=== PATIENT | male | born 1960 | race Caucasian/White ===

== ENCOUNTER 2016-08-13 23:42 | Inpatient (IN) | payer OTHER ==
[~2016-08-13] VITALS: Ht 177.8 cm; Wt 72.5 kg
[~2016-08-13 23:42] MED LIST: ALPRAZOLAM0.5 MG PO; ATARAX,VISTARIL25 MG PO; BACTRIM,SEPT1 TABLET PO; BUSPAR10 MG PO; CELEXA20 MG PO; CENTRUM MEN'S1 EACH PO; CITALOPRAM HBR20 MG PO; CLINDAMYCIN HC300 MG PO; CLONAZEPAM0.5 MG PO; Coumadin Protocol PO; Coumadin,Jantoven PO; DEPAKOTE ER500 MG PO; DIVALPROEX SOD500 M1 PO; ESCITALOPRAM OX10 MG PO; ESCITALOPRAM OX20 MG PO; FEOSOL325 MG PO; FLEXERIL10 MG PO; FLEXERIL5 MG PO; Feosol PO; IRON256 MG PO; LEXAPRO10 MG PO; LIDODERM 5% P1 PATCH TD; METHADONE10 MG PO; METHadone HCl PO; MOOD STABILIZER; MS CONTIN,ORAMO15 M1 PO; NAPROSYN-EC500 MG PO; NOHOMEMEDS; OMEGA DHA92 MG PO; OXAYDO5 MG PO; OXYCODONE HCL10 MG PO; OXYCODONE HCL30 MG PO; OXYCODONE HCL5 MG PO; OXYCODONE-APAP1 EACH PO; OXYCODONE30 MG; OXYCODONE5 MG PO; PERCOCET 10/1 TABLET PO; PERCOCET 5/31 TABLET PO; PREDNISONE20 MG PO; Percocet 5/325,Endoc PO; QUETIAPINE FUMA50 MG PO; SEROQUEL50 MG PO; SERTRALINE HCL100 MG PO; SERTRALINE HCL50 MG PO; ULTRAM50 MG PO; VALIUM5 MG PO; WARFARIN SODIUM5 MG PO; XANAX0.5 MG PO; XANAX1 MG PO; ZITHROMAX Z-PA250 MG PO; ZOFRAN4 MG PO; ZOLOFT100 MG PO; celeBREX PO
[2016-08-14 00:19] LABS: HEMATOCRIT 42.3 % (38.0-50.0); MCH 31.7 PG (29.0-34.0); MCHC 33.8 G/DL (30.0-36.0); RBC DIS.WIDTH-CV 12.4 % (11.8-14.6); RBC DIS.WIDTH-SD 42.6 % (39-53); RED BLOOD COUNT 4.51 M/uL (4.00-5.50); WHITE BLOOD COUNT 11.2 K/uL (4.1-10.2)
[2016-08-14 00:33] LABS: CHLORIDE 101 mEq/L (99-109); POTASSIUM 4.1 mEq/L (3.7-5.4); SODIUM 137 mEq/L (136-147)
[2016-08-14 00:35] LABS: GLUCOSE 115 mg/dL (70-99)
[2016-08-14 00:36] LABS: ANION GAP 10 MEQ/L (2-14)
[2016-08-14 00:39] LABS: GFR ESTIMATE (CALCULATED) > 59 mL/min/
[2016-08-14 00:40] LABS: UREA NITROGEN (BUN) 13 mg/dL (9-23)
[2016-08-14 00:43] LABS: TROP-I INTERPRETATION NEGATIVE; TROPONIN-I < 0.01 ng/mL (0.0-0.30)
[2016-08-14 00:46] LABS: TOTAL BILIRUBIN 0.8 mg/dL (0.0-1.0)
[2016-08-14 00:47] LABS: ALKALINE PHOSPHATASE 506 IU/L (3-129)
[2016-08-14 00:49] LABS: DIRECT BILIRUBIN 0.4 mg/dL (0.0-0.3)
[2016-08-14 00:50] LABS: LIPASE 40 U/L (1.0-51.0)
[2016-08-14 01:02] LABS: MCV 93.8 FL (86-99)
[2016-08-14 01:12] LABS: MEAN PLAT.VOLUME 12.8 uM^3 (9.0-12.4); PLAT.SUFFICIENCY ADEQUATE; PLATELET COUNT 272 K/uL (156-360)
[2016-08-14] MEDS ORDERED: KADIAN30 MG PO (03:30)
[2016-08-14] MEDS ORDERED: DILAUDID4 MG PO (03:30)
[2016-08-14] MEDS ORDERED: OXAYDO5 MG PO (03:31)
[2016-08-14 04:16] VITALS: BP 109/73
[2016-08-14 08:42] VITALS: BP 108/67
[2016-08-14] MEDS ORDERED: NEXIUM40 MG PO (11:21)
[2016-08-14] MEDS ORDERED: ARYMO ER30 MG PO (11:23)
[2016-08-14 15:48] VITALS: BP 113/71
[2016-08-14 19:49] VITALS: BP 111/73
[2016-08-14 23:49] VITALS: BP 128/70
[2016-08-15 04:21] VITALS: BP 116/75
[2016-08-15 07:02] VITALS: BP 124/77
[2016-08-15 13:30] VITALS: BP 114/70
[2016-08-15] MEDS ORDERED: OXYCODONE HCL10 MG PO (14:27)
[2016-08-15] MEDS ORDERED: OXYCODONE HCL5 MG PO (16:22)
[2016-08-18] MEDS ORDERED: DILAUDID4 MG PO (10:28)
[2016-08-18] MEDS ORDERED: MS CONTIN,ORAMO30 MG PO (10:29)
[2016-08-18] MEDS ORDERED: COMPAZINE10 MG PO (10:29)
== END 2016-08-15 17:04 | disposition home or self-care (01) | DRG 948 ==
LOC: EME 23:42 → EDOF 08-14 02:42 → 5WEST 08-14 04:03
DX: G89.3 Neoplasm related pain (acute) (chronic) (principal); C15.5 Malignant neoplasm of lower third of esophagus; C78.7 Secondary malignant neoplasm of liver and intrahepatic bile duct; F32.9 Major depressive disorder, single episode, unspecified; F43.20 Adjustment disorder, unspecified; Z96.641 Presence of right artificial hip joint; G89.29 Other chronic pain; M54.5 Low back pain; N40.0 Benign prostatic hyperplasia without lower urinary tract symptoms; K21.9 Gastro-esophageal reflux disease without esophagitis; Z87.891 Personal history of nicotine dependence; Z93.1 Gastrostomy status; Z79.891 Long term (current) use of opiate analgesic; Z91.5 Personal history of self-harm
CPT/HCPCS: 71010; 71275; 74177; 80048; 80076; 83605; 83690; 84484; 85027; 87040; 93005; 94640; 99281; 99285; J1170; J1650; J2270; J2405; J7030; J7050; S0028

== ENCOUNTER 2016-08-30 20:24 | Inpatient (IN) | payer OTHER ==
[~2016-08-30] VITALS: Ht 177.8 cm; Wt 71.8 kg
[~2016-08-30 20:24] MED LIST changes: +ARYMO ER30 MG PO; +COMPAZINE10 MG PO; +DILAUDID4 MG PO; +KADIAN30 MG PO; +MS CONTIN,ORAMO30 MG PO; +NEXIUM40 MG PO
[2016-08-30 21:35] LABS: BASOPHIL COUNT 0.1 K/uL (0-0.1); EOSINOPHIL (%) 4.1 % (0-5); EOSINOPHIL COUNT 0.5 K/uL (0-0.3); HEMATOCRIT 37.8 % (38.0-50.0); IMMATURE GRANULOCYTE (%) 0.4 % (0.0-0.7); IMMATURE GRANULOCYTE COUNT 0.1 K/uL; INSTRUMENT ABS NEUTROPHIL CT 7.9 K/uL; LYMPHOCYTE COUNT 2.3 K/uL (1.0-2.8); MCH 31.2 PG (29.0-34.0); MCHC 33.6 G/DL (30.0-36.0); MCV 92.9 FL (86-99); MEAN PLAT.VOLUME 11.7 uM^3 (9.0-12.4); MONOCYTE (%) 13.6 % (3-12); MONOCYTE COUNT 1.7 K/uL (0-0.8); NEUTROPHIL COUNT 7.9 K/uL (1.8-6.4); PLATELET COUNT 209 K/uL (156-360); RBC DIS.WIDTH-CV 12.4 % (11.8-14.6); RBC DIS.WIDTH-SD 42.8 % (39-53); RED BLOOD COUNT 4.07 M/uL (4.00-5.50); WHITE BLOOD COUNT 12.5 K/uL (4.1-10.2)
[2016-08-30 21:43] LABS: CHLORIDE 106 mEq/L (99-109); SODIUM 139 mEq/L (136-147)
[2016-08-30 21:45] LABS: GLUCOSE 134 mg/dL (70-99)
[2016-08-30 21:47] LABS: ANION GAP 9 MEQ/L (2-14); TOTAL BILIRUBIN 0.4 mg/dL (0.0-1.0)
[2016-08-30 21:49] LABS: ALKALINE PHOSPHATASE 236 IU/L (3-129); GFR ESTIMATE (CALCULATED) > 59 mL/min/
[2016-08-30 21:50] LABS: UREA NITROGEN (BUN) 8 mg/dL (9-23)
[2016-08-30] MEDS ORDERED: GABAPENTIN100 MG PO (23:43)
[2016-08-30] MEDS ORDERED: MI-ACID80 MG PO (23:46)
[2016-08-31 02:42] VITALS: BP 104/63
[2016-08-31 04:40] LABS: METH RESISTANT S AUREUS PCR NEGATIVE (NEGATIVE)
[2016-08-31 04:41] LABS: PROBE CHECK PASS; SPECIMEN PROCESSING CONTROL PASS
[2016-08-31 06:35] LABS: BASOPHIL COUNT 0.1 K/uL (0-0.1); EOSINOPHIL (%) 3.9 % (0-5); EOSINOPHIL COUNT 0.4 K/uL (0-0.3); HEMATOCRIT 36.6 % (38.0-50.0); IMMATURE GRANULOCYTE (%) 0.5 % (0.0-0.7); IMMATURE GRANULOCYTE COUNT 0.1 K/uL; INSTRUMENT ABS NEUTROPHIL CT 6.8 K/uL; LYMPHOCYTE COUNT 2.4 K/uL (1.0-2.8); MCH 30.9 PG (29.0-34.0); MCHC 32.5 G/DL (30.0-36.0); MCV 95.1 FL (86-99); MONOCYTE (%) 13.6 % (3-12); MONOCYTE COUNT 1.5 K/uL (0-0.8); NEUTROPHIL (%) 60.1 % (45-76); NEUTROPHIL COUNT 6.8 K/uL (1.8-6.4); PLATELET COUNT 196 K/uL (156-360); RBC DIS.WIDTH-CV 12.6 % (11.8-14.6); RBC DIS.WIDTH-SD 44.2 % (39-53); RED BLOOD COUNT 3.85 M/uL (4.00-5.50); WHITE BLOOD COUNT 11.4 K/uL (4.1-10.2)
[2016-08-31 06:54] LABS: ANION GAP 6 MEQ/L (2-14); CHLORIDE 106 MEQ/L (99-109); GFR ESTIMATE (CALCULATED) > 59 mL/min/; POTASSIUM 4.8 MEQ/L (3.7-5.4); SAMPLE HEMOLYSIS CHECK 0; SAMPLE ICTERIC CHECK 0; SAMPLE LIPEMIA CHECK 0; SODIUM 141 MEQ/L (136-147); UREA NITROGEN (BUN) 7 mg/dL (9-23)
[2016-08-31 07:03] LABS: GLUCOSE 87 mg/dL (70-99)
[2016-08-31 07:07] VITALS: BP 104/59
[2016-08-31] MEDS ORDERED: OXYCODONE HCL10 MG PO (12:31)
[2016-08-31 15:50] VITALS: BP 101/59
[2016-08-31] MEDS ORDERED: XANAX1 MG PO (15:57)
[2016-08-31 23:37] VITALS: BP 101/67
[2016-09-01 06:21] LABS: BASOPHIL COUNT 0.1 K/uL (0-0.1); EOSINOPHIL (%) 4.1 % (0-5); EOSINOPHIL COUNT 0.4 K/uL (0-0.3); HEMATOCRIT 36.4 % (38.0-50.0); IMMATURE GRANULOCYTE (%) 0.3 % (0.0-0.7); INSTRUMENT ABS NEUTROPHIL CT 6.7 K/uL; MCH 30.6 PG (29.0-34.0); MCHC 32.1 G/DL (30.0-36.0); MCV 95.3 FL (86-99); MEAN PLAT.VOLUME 12.7 uM^3 (9.0-12.4); MONOCYTE (%) 12.7 % (3-12); MONOCYTE COUNT 1.4 K/uL (0-0.8); NEUTROPHIL (%) 63.5 % (45-76); NEUTROPHIL COUNT 6.7 K/uL (1.8-6.4); PLATELET COUNT 199 K/uL (156-360); RBC DIS.WIDTH-CV 12.6 % (11.8-14.6); RBC DIS.WIDTH-SD 43.4 % (39-53); RED BLOOD COUNT 3.82 M/uL (4.00-5.50); WHITE BLOOD COUNT 10.6 K/uL (4.1-10.2)
[2016-09-01 07:04] VITALS: BP 92/42
[2016-09-01 15:39] VITALS: BP 109/65
[2016-09-01 20:35] VITALS: BP 111/69
[2016-09-01 23:04] VITALS: BP 110/68
[2016-09-02 06:09] VITALS: BP 99/63
[2016-09-02 07:23] VITALS: BP 115/68
[2016-09-02 08:55] LABS: MCH 30.7 PG (29.0-34.0); MCHC 32.2 G/DL (30.0-36.0); MCV 95.2 FL (86-99); MEAN PLAT.VOLUME 12.2 uM^3 (9.0-12.4); PLATELET COUNT 207 K/uL (156-360); RBC DIS.WIDTH-CV 12.7 % (11.8-14.6); RBC DIS.WIDTH-SD 44.2 % (39-53); RED BLOOD COUNT 3.78 M/uL (4.00-5.50); WHITE BLOOD COUNT 7.5 K/uL (4.1-10.2)
[2016-09-02 09:20] LABS: ANION GAP 7 MEQ/L (2-14); CHLORIDE 107 MEQ/L (99-109); GFR ESTIMATE (CALCULATED) > 59 mL/min/; GLUCOSE 103 mg/dL (70-99); SAMPLE HEMOLYSIS CHECK 0; SAMPLE ICTERIC CHECK 0; SAMPLE LIPEMIA CHECK 0; SODIUM 145 MEQ/L (136-147); UREA NITROGEN (BUN) 6 mg/dL (9-23)
[2016-09-02] MEDS ORDERED: CIPRO500 MG PO (12:36)
[2016-09-02] MEDS ORDERED: DOXYCYCLINE HY100 MG PO (12:36)
== END 2016-09-02 15:15 | disposition home or self-care (01) | DRG 394 ==
LOC: EME 20:24 → 5EAST 08-31 00:20 → EDOF 08-31 00:20 → 5EAST 08-31 02:30
PROVIDERS: Emergency Medicine; Hospitalist; Internal Medicine
DX: K94.22 Gastrostomy infection (principal); C15.9 Malignant neoplasm of esophagus, unspecified; C78.7 Secondary malignant neoplasm of liver and intrahepatic bile duct; L03.311 Cellulitis of abdominal wall; L02.211 Cutaneous abscess of abdominal wall; C77.8 Secondary and unspecified malignant neoplasm of lymph nodes of multiple regions; F11.20 Opioid dependence, uncomplicated; C79.51 Secondary malignant neoplasm of bone; F33.9 Major depressive disorder, recurrent, unspecified; G89.3 Neoplasm related pain (acute) (chronic); K21.9 Gastro-esophageal reflux disease without esophagitis; F17.210 Nicotine dependence, cigarettes, uncomplicated; G89.4 Chronic pain syndrome; M54.12 Radiculopathy, cervical region; M54.16 Radiculopathy, lumbar region; K59.00 Constipation, unspecified; Z88.6 Allergy status to analgesic agent; Z96.651 Presence of right artificial knee joint; Z98.1 Arthrodesis status; Z86.14 Personal history of Methicillin resistant Staphylococcus aureus infection; Z80.8 Family history of malignant neoplasm of other organs or systems; Z81.8 Family history of other mental and behavioral disorders; Z09 Encounter for follow-up examination after completed treatment for conditions other than malignant neoplasm
CPT/HCPCS: 74176; 80048; 80053; 82948; 83605; 85025; 85027; 87040; 87070; 87075; 87205; 87641; 99281; 99285; J1170; J1644; J2270; J2543; J7030; J7050; S0028

== ENCOUNTER 2016-09-04 22:56 | Observation (INO) | payer OTHER ==
[~2016-09-04] VITALS: Ht 177.8 cm; Wt 73.2 kg
[~2016-09-04 22:56] MED LIST changes: +CIPRO500 MG PO; +DOXYCYCLINE HY100 MG PO; +GABAPENTIN100 MG PO; +MI-ACID80 MG PO
[2016-09-05 00:15] LABS: EOSINOPHIL (%) 4.3 % (0-5); EOSINOPHIL COUNT 0.4 K/uL (0-0.3); HEMATOCRIT 35.4 % (38.0-50.0); IMMATURE GRANULOCYTE (%) 0.3 % (0.0-0.7); INSTRUMENT ABS NEUTROPHIL CT 5.8 K/uL; MCH 30.9 PG (29.0-34.0); MCHC 33.1 G/DL (30.0-36.0); MCV 93.4 FL (86-99); MONOCYTE (%) 12.9 % (3-12); MONOCYTE COUNT 1.2 K/uL (0-0.8); NEUTROPHIL (%) 61.2 % (45-76); NEUTROPHIL COUNT 5.8 K/uL (1.8-6.4); PLATELET COUNT 204 K/uL (156-360); RBC DIS.WIDTH-CV 12.8 % (11.8-14.6); RBC DIS.WIDTH-SD 43.5 % (39-53); RED BLOOD COUNT 3.79 M/uL (4.00-5.50); WHITE BLOOD COUNT 9.5 K/uL (4.1-10.2)
[2016-09-05 00:25] LABS: CHLORIDE 107 mEq/L (99-109); POTASSIUM 3.9 mEq/L (3.7-5.4); SODIUM 139 mEq/L (136-147)
[2016-09-05 00:27] LABS: GLUCOSE 102 mg/dL (70-99)
[2016-09-05 00:29] LABS: ANION GAP 7 MEQ/L (2-14)
[2016-09-05 00:31] LABS: GFR ESTIMATE (CALCULATED) > 59 mL/min/
[2016-09-05 00:32] LABS: UREA NITROGEN (BUN) 7 mg/dL (9-23)
[2016-09-05 00:36] LABS: TROP-I INTERPRETATION NEGATIVE; TROPONIN-I < 0.01 ng/mL (0.0-0.30)
[2016-09-05 01:14] LABS: ADD MIUA? NO; BILIRUBIN NEGATIVE; BLOOD NEGATIVE; COLOR YELLOW ((YELLOW)); GLUCOSE (STRIP) NEGATIVE; KETONES NEGATIVE; LEUKOCYTES NEGATIVE; NITRITE NEGATIVE; PROTEIN (STRIP) NEGATIVE; SPECIFIC GRAVITY 1.005 (1.000-1.030); UCUL ADDED? NO; UROBILINOGEN 0.2 MG/DL (0.2-1.0)
[2016-09-05 01:21] LABS: THC CANNABINOIDS NEGATIVE (50 ng/mL)
[2016-09-05 01:22] LABS: AMPHETAMINE NEGATIVE (500 ng/mL); BARBITURATES NEGATIVE (200 ng/mL); BENZODIAZEPINES PRESUMPTIVE POSITIVE (150 ng/mL); COCAINE NEGATIVE (150 ng/mL); INTERNAL CONTROLS VALID? YES; METHADONE NEGATIVE (200 ng/mL); METHAMPHETAMINE NEGATIVE (500 ng/mL); OPIATES (MORPHINE) PRESUMPTIVE POSITIVE (100 ng/mL); OXYCODONE PRESUMPTIVE POSITIVE (100 ng/mL); PHENCYCLIDINE NEGATIVE (25 ng/mL); PROPOXYPHENE NEGATIVE (300 ng/mL); TRICYCLIC ANTIDEPRESSANTS NEGATIVE (300 ng/mL)
[2016-09-05 01:23] LABS: ADD MEDTOX COMMENT Y
[2016-09-05 02:29] LABS: BENZODIAZEPINES, URINE SCREEN POSITIVE (200 ng/mL)
[2016-09-05 02:48] LABS: BICARBONATE 27.1 mEq/L (22-26); CARBOXY HGB 2.4 % (0-5); COMMENTS - BLOOD GASES A+C+; DEVICE ROOM AIR; FI02 0.21 %; METHEMOGLOBIN 1.1 % (0-1.5); PCO2 39 mm Hg (35-45); PO2 68 mm Hg (80-100); SITE RR; pH 7.45 (7.35-7.45)
[2016-09-05 02:49] LABS: TOTAL RESP RATE 16 resp/min
[2016-09-05 03:32] VITALS: BP 112/65
[2016-09-05 08:05] VITALS: BP 110/68
== END 2016-09-05 12:45 | disposition home health service (06) ==
LOC: EME 22:56 → EDOF 09-05 02:20 → 5WEST 09-05 03:15
PROVIDERS: Emergency Medicine; Physician Assistant Medical
DX: R41.82 Altered mental status, unspecified (principal); K59.00 Constipation, unspecified; T40.605A Adverse effect of unspecified narcotics, initial encounter; F11.20 Opioid dependence, uncomplicated; K94.22 Gastrostomy infection; C78.7 Secondary malignant neoplasm of liver and intrahepatic bile duct; C78.00 Secondary malignant neoplasm of unspecified lung; C78.89 Secondary malignant neoplasm of other digestive organs; K21.9 Gastro-esophageal reflux disease without esophagitis; G89.29 Other chronic pain; Z85.01 Personal history of malignant neoplasm of esophagus; M54.16 Radiculopathy, lumbar region; M54.12 Radiculopathy, cervical region; Z87.891 Personal history of nicotine dependence; Z86.14 Personal history of Methicillin resistant Staphylococcus aureus infection
CPT/HCPCS: 36600; 70450; 71020; 80048; 81003; 82140; 82803; 83605; 84484; 84999; 85025; 85027; 93005; 99281; 99284; G0378; J1650; J7030

== ENCOUNTER 2016-09-26 20:55 | Inpatient (IN) | payer OTHER ==
[~2016-09-26] VITALS: Ht 177.8 cm; Wt 69.6 kg
[2016-09-26 22:29] LABS: HEMATOCRIT 34.9 % (38.0-50.0); MCH 30.2 PG (29.0-34.0); MCHC 33.5 G/DL (30.0-36.0); MCV 89.9 FL (86-99); RBC DIS.WIDTH-CV 12.8 % (11.8-14.6); RBC DIS.WIDTH-SD 41.6 % (39-53); RED BLOOD COUNT 3.88 M/uL (4.00-5.50); WHITE BLOOD COUNT 6.5 K/uL (4.1-10.2)
[2016-09-26 22:33] LABS: CHLORIDE 102 mEq/L (99-109); SODIUM 133 mEq/L (136-147)
[2016-09-26 22:35] LABS: GLUCOSE 129 mg/dL (70-99)
[2016-09-26 22:36] LABS: ANION GAP 6 MEQ/L (2-14)
[2016-09-26 22:39] LABS: GFR ESTIMATE (CALCULATED) > 59 mL/min/
[2016-09-26 22:40] LABS: INTER. NORMALIZED RATIO 1.1; PROTHROMBIN TIME 11.7 (9.2-11.2); PTT 29.8 (25-32); UREA NITROGEN (BUN) 11 mg/dL (9-23)
[2016-09-26 22:42] LABS: TROP-I INTERPRETATION NEGATIVE; TROPONIN-I < 0.01 ng/mL (0.0-0.30)
[2016-09-26 22:48] LABS: D-DIMER ELISA > 4.00 mg/L FEU (< 0.57)
[2016-09-26 23:33] LABS: PLATELET CLUMPS PRESENT - PLATELET C; PLATELET COUNT UNABLE TO REPORT K/uL (156-360)
[2016-09-27 04:43] VITALS: BP 100/58
[2016-09-27] MEDS ORDERED: OXYCODONE HCL30 MG PO (04:48)
[2016-09-27] MEDS ORDERED: ZOFRAN ODT4 MG PO (04:51)
[2016-09-27 05:59] LABS: TROP-I INTERPRETATION NEGATIVE; TROPONIN-I < 0.01 ng/mL (0.0-0.30)
[2016-09-27 07:45] VITALS: BP 98/60
[2016-09-27 11:33] VITALS: BP 87/51
[2016-09-27 13:13] LABS: TROP-I INTERPRETATION NEGATIVE; TROPONIN-I < 0.01 ng/mL (0.0-0.30)
[2016-09-27] MEDS ORDERED: OXYCODONE HCL5 MG PO (13:53)
[2016-09-27 14:16] VITALS: BP 99/57
[2016-09-27 20:00] VITALS: BP 10/62
[2016-09-27 23:50] LABS: POINT-OF-CARE METER ID UU13113700
[2016-09-28] VITALS (7 sets, daily range): BP systolic 103–115; BP diastolic 58–74
[2016-09-28 00:37] LABS: ADD MIUA? NO; BILIRUBIN NEGATIVE; BLOOD NEGATIVE; COLOR YELLOW ((YELLOW)); GLUCOSE (STRIP) NEGATIVE; KETONES NEGATIVE; LEUKOCYTES NEGATIVE; NITRITE NEGATIVE; PROTEIN (STRIP) NEGATIVE; SPECIFIC GRAVITY 1.009 (1.000-1.030); UCUL ADDED? NO
[2016-09-28 05:20] LABS: POINT-OF-CARE METER ID UU14162513
[2016-09-28 07:20] LABS: HEMATOCRIT 31.1 % (38.0-50.0); MCH 29.5 PG (29.0-34.0); MCHC 32.5 G/DL (30.0-36.0); MCV 90.9 FL (86-99); MEAN PLAT.VOLUME 12.2 uM^3 (9.0-12.4); RBC DIS.WIDTH-CV 13.1 % (11.8-14.6); RBC DIS.WIDTH-SD 42.9 % (39-53); RED BLOOD COUNT 3.42 M/uL (4.00-5.50); WHITE BLOOD COUNT 5.8 K/uL (4.1-10.2)
[2016-09-28 07:39] LABS: PLATELET COUNT 124 K/uL (156-360)
[2016-09-28 07:51] LABS: ANION GAP 9 MEQ/L (2-14); CHLORIDE 104 MEQ/L (99-109); GFR ESTIMATE (CALCULATED) > 59 mL/min/; GLUCOSE 98 mg/dL (70-99); POTASSIUM 3.8 MEQ/L (3.7-5.4); SAMPLE HEMOLYSIS CHECK 0; SAMPLE ICTERIC CHECK 0; SAMPLE LIPEMIA CHECK 0; SODIUM 138 MEQ/L (136-147); UREA NITROGEN (BUN) 5 mg/dL (9-23)
[2016-09-28 12:34] LABS: POINT-OF-CARE METER ID UU13113700
[2016-09-29 03:53] VITALS: BP 107/68
[2016-09-29 06:56] VITALS: BP 101/64
[2016-09-29 11:49] VITALS: BP 103/70
[2016-09-29 11:49] LABS: POINT-OF-CARE METER ID UU13113725
[2016-09-29 15:02] VITALS: BP 101/66
[2016-09-30 00:21] LABS: POINT-OF-CARE METER ID UU13113725
[2016-09-30 05:21] LABS: POINT-OF-CARE METER ID UU13113725
[2016-09-30 06:51] LABS: EOSINOPHIL (%) 3.9 % (0-5); EOSINOPHIL COUNT 0.4 K/uL (0-0.3); HEMATOCRIT 29.5 % (38.0-50.0); IMMATURE GRANULOCYTE (%) 0.6 % (0.0-0.7); IMMATURE GRANULOCYTE COUNT 0.1 K/uL; INSTRUMENT ABS NEUTROPHIL CT 5.9 K/uL; LYMPHOCYTE COUNT 1.6 K/uL (1.0-2.8); MCH 31.4 PG (29.0-34.0); MCHC 33.9 G/DL (30.0-36.0); MCV 92.8 FL (86-99); MEAN PLAT.VOLUME 11.9 uM^3 (9.0-12.4); MONOCYTE (%) 16.3 % (3-12); MONOCYTE COUNT 1.5 K/uL (0-0.8); NEUTROPHIL (%) 62.3 % (45-76); NEUTROPHIL COUNT 5.9 K/uL (1.8-6.4); PLATELET COUNT 145 K/uL (156-360); RBC DIS.WIDTH-CV 13.4 % (11.8-14.6); RBC DIS.WIDTH-SD 44.9 % (39-53); RED BLOOD COUNT 3.18 M/uL (4.00-5.50); WHITE BLOOD COUNT 9.4 K/uL (4.1-10.2)
[2016-09-30 07:16] LABS: ANION GAP 6 MEQ/L (2-14); CHLORIDE 101 MEQ/L (99-109); GFR ESTIMATE (CALCULATED) > 59 mL/min/; GLUCOSE 107 mg/dL (70-99); POTASSIUM 3.8 MEQ/L (3.7-5.4); SAMPLE HEMOLYSIS CHECK 0; SAMPLE ICTERIC CHECK 0; SAMPLE LIPEMIA CHECK 0; SODIUM 136 MEQ/L (136-147); UREA NITROGEN (BUN) 6 mg/dL (9-23)
[2016-09-30 08:04] VITALS: BP 99/64
[2016-09-30] MEDS ORDERED: DOCU LIQUI50 MG/5 ML GT (13:39)
[2016-09-30] MEDS ORDERED: ZOFRAN ODT4 MG PO (13:40)
[2016-09-30] MEDS ORDERED: OXYCODONE HCL30 MG PO (13:42)
[2016-09-30] MEDS ORDERED: MORPHINE SULFAT60 MG PO (13:42)
[2016-09-30] MEDS ORDERED: PREVACID SOLUTA30 MG GT (13:42)
[2016-09-30 15:55] VITALS: BP 90/68
== END 2016-09-30 16:34 | disposition home health service (06) | DRG 375 ==
LOC: EME 20:55 → 5WEST 09-27 03:14 → EDOF 09-27 03:14 → 5WEST 09-27 04:28 → 5EAST 09-28 10:18
PROVIDERS: Hospitalist; Internal Medicine; Student in an Organized Health Care Education/Training Program
DX: C15.5 Malignant neoplasm of lower third of esophagus (principal); K22.2 Esophageal obstruction; G89.3 Neoplasm related pain (acute) (chronic); C78.00 Secondary malignant neoplasm of unspecified lung; C78.7 Secondary malignant neoplasm of liver and intrahepatic bile duct; C79.51 Secondary malignant neoplasm of bone; C77.1 Secondary and unspecified malignant neoplasm of intrathoracic lymph nodes; F41.9 Anxiety disorder, unspecified; G89.4 Chronic pain syndrome; R13.19 Other dysphagia; F32.9 Major depressive disorder, single episode, unspecified; J44.9 Chronic obstructive pulmonary disease, unspecified; K21.9 Gastro-esophageal reflux disease without esophagitis; D64.9 Anemia, unspecified; Z96.641 Presence of right artificial hip joint; Z98.1 Arthrodesis status; Z87.891 Personal history of nicotine dependence; Z93.1 Gastrostomy status; Z79.891 Long term (current) use of opiate analgesic
CPT/HCPCS: 71020; 71275; 80048; 81003; 82948; 83880; 84484; 85025; 85027; 85379; 85610; 85730; 93005; 99281; 99285; G0378; J1650; J2270; J2405; J7030; J7042; S0028

== ENCOUNTER 2016-10-09 16:03 | Inpatient (IN) | payer OTHER ==
[~2016-10-09] VITALS: Ht 177.8 cm; Wt 75.5 kg
[~2016-10-09 16:03] MED LIST changes: +DOCU LIQUI50 MG/5 ML GT; +LASIX20 MG PO; +MORPHINE SULFAT60 MG PO; +PREVACID SOLUTA30 MG GT; +PRILOSEC10 M1 PO; +ZOFRAN ODT4 MG PO
[2016-10-09] MEDS ORDERED: OXYCODONE HCL30 MG PO (17:12)
[2016-10-09] MEDS ORDERED: NEXIUM20 M1 GT (17:13)
[2016-10-09 18:26] LABS: BASOPHIL COUNT 0.1 K/uL (0-0.1); EOSINOPHIL COUNT 0.1 K/uL (0-0.3); HEMATOCRIT 35.5 % (38.0-50.0); IMMATURE GRANULOCYTE (%) 0.5 % (0.0-0.7); IMMATURE GRANULOCYTE COUNT 0.1 K/uL; INSTRUMENT ABS NEUTROPHIL CT 7.5 K/uL; LYMPHOCYTE COUNT 1.9 K/uL (1.0-2.8); MCH 30.1 PG (29.0-34.0); MCHC 33.2 G/DL (30.0-36.0); MCV 90.6 FL (86-99); MEAN PLAT.VOLUME 12.4 uM^3 (9.0-12.4); MONOCYTE COUNT 2.1 K/uL (0-0.8); NEUTROPHIL (%) 64.1 % (45-76); NEUTROPHIL COUNT 7.5 K/uL (1.8-6.4); PLATELET COUNT 148 K/uL (156-360); RBC DIS.WIDTH-CV 17.1 % (11.8-14.6); RBC DIS.WIDTH-SD 52.6 % (39-53); RED BLOOD COUNT 3.92 M/uL (4.00-5.50); WHITE BLOOD COUNT 11.7 K/uL (4.1-10.2)
[2016-10-09 18:36] LABS: CHLORIDE 102 mEq/L (99-109); POTASSIUM 4.1 mEq/L (3.7-5.4); SODIUM 137 mEq/L (136-147)
[2016-10-09 18:38] LABS: GLUCOSE 89 mg/dL (70-99)
[2016-10-09 18:39] LABS: ANION GAP 10 MEQ/L (2-14)
[2016-10-09 18:40] LABS: TOTAL BILIRUBIN 3.4 mg/dL (0.0-1.0)
[2016-10-09 18:41] LABS: ALKALINE PHOSPHATASE 514 IU/L (3-129)
[2016-10-09 18:42] LABS: GFR ESTIMATE (CALCULATED) > 59 mL/min/; INTER. NORMALIZED RATIO 1.3; PROTHROMBIN TIME 13.4 (9.2-11.2); PTT 29.6 (25-32)
[2016-10-09 18:43] LABS: UREA NITROGEN (BUN) 7 mg/dL (9-23)
[2016-10-09 19:32] LABS: ADD MIUA? YES; BILIRUBIN MODERATE; BLOOD NEGATIVE; COLOR AMBER ((YELLOW)); GLUCOSE (STRIP) NEGATIVE; KETONES NEGATIVE; LEUKOCYTES NEGATIVE; NITRITE NEGATIVE; PROTEIN (STRIP) NEGATIVE; SPECIFIC GRAVITY 1.036 (1.000-1.030)
[2016-10-09 19:34] LABS: BACTERIA RARE /HPF; EPITHELIAL CELLS RARE /HPF; MUCUS 3+ /LPF; RED BLOOD CELLS 0-5 /HPF (0-5); UCUL ADDED? NO
[2016-10-09 19:45] LABS: ICTOTEST NEGATIVE
[2016-10-09 23:44] VITALS: BP 127/69
[2016-10-10 06:47] LABS: HEMATOCRIT 34.9 % (38.0-50.0); MCH 30.4 PG (29.0-34.0); MCHC 33.2 G/DL (30.0-36.0); MCV 91.6 FL (86-99); MEAN PLAT.VOLUME 12.9 uM^3 (9.0-12.4); PLATELET COUNT 137 K/uL (156-360); RBC DIS.WIDTH-CV 17.5 % (11.8-14.6); RBC DIS.WIDTH-SD 55.5 % (39-53); RED BLOOD COUNT 3.81 M/uL (4.00-5.50); WHITE BLOOD COUNT 11.1 K/uL (4.1-10.2)
[2016-10-10 07:21] LABS: ANION GAP 8 MEQ/L (2-14); CHLORIDE 103 MEQ/L (99-109); GFR ESTIMATE (CALCULATED) > 59 mL/min/; GLUCOSE 90 mg/dL (70-99); POTASSIUM 3.9 MEQ/L (3.7-5.4); SAMPLE HEMOLYSIS CHECK 0; SAMPLE ICTERIC CHECK 0; SAMPLE LIPEMIA CHECK 0; SODIUM 137 MEQ/L (136-147); UREA NITROGEN (BUN) 9 mg/dL (9-23)
[2016-10-10 07:44] LABS: DIRECT BILIRUBIN 2.2 mg/dL (0.0-0.3)
[2016-10-10 08:34] VITALS: BP 127/75
[2016-10-10 11:14] LABS: TYPE OF FLUID PARACENTESIS
[2016-10-10 12:23] LABS: BODY FLUID EOSINOPHILS 1 % (0-25); BODY FLUID RBC'S < 1000 /MM^3 (0-100); BODY FLUID WBC'S 384 /MM^3 (0-500); MONONUCLEAR WBC'S 96 %; POLYNUCLEAR WBC'S 3 % (0-25)
[2016-10-10 12:37] LABS: BODY FLUID LDH 111 IU/L; BODY FLUID PROTEIN < 3.0 G/DL
[2016-10-10 15:41] VITALS: BP 130/68
[2016-10-10 21:26] VITALS: BP 106/76
[2016-10-11 06:38] VITALS: BP 105/65
[2016-10-11 07:02] LABS: HEMATOCRIT 35.7 % (38.0-50.0); MCH 30.2 PG (29.0-34.0); MCHC 32.8 G/DL (30.0-36.0); MEAN PLAT.VOLUME 12.4 uM^3 (9.0-12.4); PLATELET COUNT 119 K/uL (156-360); RBC DIS.WIDTH-SD 57.1 % (39-53); RED BLOOD COUNT 3.88 M/uL (4.00-5.50); WHITE BLOOD COUNT 12.1 K/uL (4.1-10.2)
[2016-10-11 07:33] LABS: ALKALINE PHOSPHATASE 387 IU/L (3-129); ANION GAP 6 MEQ/L (2-14); CHLORIDE 104 MEQ/L (99-109); GFR ESTIMATE (CALCULATED) > 59 mL/min/; GLUCOSE 135 mg/dL (70-99); POTASSIUM 4.1 MEQ/L (3.7-5.4); SAMPLE HEMOLYSIS CHECK 0; SAMPLE ICTERIC CHECK 0; SAMPLE LIPEMIA CHECK 0; SODIUM 137 MEQ/L (136-147); TOTAL BILIRUBIN 3.3 MG/DL (0.0-1.0); UREA NITROGEN (BUN) 13 mg/dL (9-23)
[2016-10-11 16:32] VITALS: BP 114/66
[2016-10-11 22:37] VITALS: BP 117/80
[2016-10-12 06:25] LABS: HEMATOCRIT 37.8 % (38.0-50.0); MCH 29.8 PG (29.0-34.0); MCHC 32.8 G/DL (30.0-36.0); MCV 90.9 FL (86-99); MEAN PLAT.VOLUME 12.8 uM^3 (9.0-12.4); PLATELET COUNT 93 K/uL (156-360); RBC DIS.WIDTH-CV 18.6 % (11.8-14.6); RED BLOOD COUNT 4.16 M/uL (4.00-5.50); WHITE BLOOD COUNT 14.7 K/uL (4.1-10.2)
[2016-10-12 06:40] LABS: ALKALINE PHOSPHATASE 440 IU/L (3-129)
[2016-10-12 06:43] LABS: DIRECT BILIRUBIN 3.1 mg/dL (0.0-0.3)
[2016-10-12 06:54] LABS: TOTAL BILIRUBIN 4.3 mg/dL (0.0-1.0)
[2016-10-12 07:11] VITALS: BP 116/76
[2016-10-12 16:18] VITALS: BP 120/86
[2016-10-12 23:25] VITALS: BP 120/80
[2016-10-12 23:26] LABS: BODY FLUID PH 7.9 (())
[2016-10-13 07:10] LABS: HEMATOCRIT 41.2 % (38.0-50.0); MCH 29.8 PG (29.0-34.0); MEAN PLAT.VOLUME 13.4 uM^3 (9.0-12.4); PLATELET COUNT 94 K/uL (156-360); RBC DIS.WIDTH-CV 19.5 % (11.8-14.6); RBC DIS.WIDTH-SD 62.4 % (39-53); RED BLOOD COUNT 4.43 M/uL (4.00-5.50)
[2016-10-13 07:41] LABS: ALKALINE PHOSPHATASE 423 IU/L (3-129); ANION GAP 9 MEQ/L (2-14); CHLORIDE 103 MEQ/L (99-109); DIRECT BILIRUBIN 2.6 mg/dL (0.0-0.3); GFR ESTIMATE (CALCULATED) > 59 mL/min/; GLUCOSE 79 mg/dL (70-99); SAMPLE HEMOLYSIS CHECK 0; SAMPLE ICTERIC CHECK 1; SAMPLE LIPEMIA CHECK 0; SODIUM 137 MEQ/L (136-147); UREA NITROGEN (BUN) 14 mg/dL (9-23)
[2016-10-13 07:58] VITALS: BP 113/76
[2016-10-13 16:13] VITALS: BP 111/74
[2016-10-13 23:33] VITALS: BP 115/75
[2016-10-14 06:35] LABS: BASOPHIL COUNT 0.1 K/uL (0-0.1); EOSINOPHIL (%) 0.9 % (0-5); EOSINOPHIL COUNT 0.1 K/uL (0-0.3); HEMATOCRIT 37.9 % (38.0-50.0); IMMATURE GRANULOCYTE (%) 0.8 % (0.0-0.7); IMMATURE GRANULOCYTE COUNT 0.1 K/uL; INSTRUMENT ABS NEUTROPHIL CT 11.5 K/uL; LYMPHOCYTE COUNT 1.7 K/uL (1.0-2.8); MCH 30.8 PG (29.0-34.0); MCV 93.3 FL (86-99); MEAN PLAT.VOLUME 12.8 uM^3 (9.0-12.4); MONOCYTE (%) 12.1 % (3-12); MONOCYTE COUNT 1.9 K/uL (0-0.8); NEUTROPHIL (%) 74.9 % (45-76); NEUTROPHIL COUNT 11.5 K/uL (1.8-6.4); PLATELET COUNT 78 K/uL (156-360); RBC DIS.WIDTH-CV 19.7 % (11.8-14.6); RBC DIS.WIDTH-SD 64.7 % (39-53); RED BLOOD COUNT 4.06 M/uL (4.00-5.50); WHITE BLOOD COUNT 15.4 K/uL (4.1-10.2)
[2016-10-14 07:05] LABS: ALKALINE PHOSPHATASE 378 IU/L (3-129); ANION GAP 6 MEQ/L (2-14); CHLORIDE 103 MEQ/L (99-109); DIRECT BILIRUBIN 2.6 mg/dL (0.0-0.3); GFR ESTIMATE (CALCULATED) > 59 mL/min/; POTASSIUM 4.1 MEQ/L (3.7-5.4); SAMPLE HEMOLYSIS CHECK 0; SAMPLE ICTERIC CHECK 1; SAMPLE LIPEMIA CHECK 0; SODIUM 136 MEQ/L (136-147); UREA NITROGEN (BUN) 15 mg/dL (9-23)
[2016-10-14 07:08] LABS: GLUCOSE 110 mg/dL (70-99)
[2016-10-14 08:02] VITALS: BP 117/75
[2016-10-14 12:37] LABS: ADD MIUA? YES; BILIRUBIN MODERATE; BLOOD NEGATIVE; COLOR AMBER ((YELLOW)); GLUCOSE (STRIP) NEGATIVE; KETONES NEGATIVE; LEUKOCYTES NEGATIVE; NITRITE NEGATIVE; PROTEIN (STRIP) NEGATIVE; SPECIFIC GRAVITY 1.029 (1.000-1.030)
[2016-10-14 12:59] LABS: ICTOTEST POSITIVE
[2016-10-14 13:11] LABS: BACTERIA NONE SEEN /HPF; EPITHELIAL CELLS NONE SEEN /HPF; MUCUS 3+ /LPF; RED BLOOD CELLS NONE SEEN /HPF (0-5); WHITE BLOOD CELLS 0-5 /HPF (0-5)
[2016-10-14 18:21] VITALS: BP 105/73
[2016-10-14 18:32] VITALS: BP 105/73
== END 2016-10-14 20:52 | DRG 375 ==
LOC: EME 16:03 → EDOF 22:22 → 5EAST 22:22
PROVIDERS: Anesthesiology; Emergency Medicine; Hospitalist; Internal Medicine
PROC: 0W9G30Z Drainage of Peritoneal Cavity with Drainage Device, Percutaneous Approach (ICD-10-PCS; principal; 2016-10-10)
DX: C78.6 Secondary malignant neoplasm of retroperitoneum and peritoneum (principal); C79.51 Secondary malignant neoplasm of bone; C78.7 Secondary malignant neoplasm of liver and intrahepatic bile duct; C77.2 Secondary and unspecified malignant neoplasm of intra-abdominal lymph nodes; R18.0 Malignant ascites; Z51.5 Encounter for palliative care; Z66 Do not resuscitate; F33.9 Major depressive disorder, recurrent, unspecified; C15.5 Malignant neoplasm of lower third of esophagus; E72.20 Disorder of urea cycle metabolism, unspecified; D68.9 Coagulation defect, unspecified; E86.0 Dehydration; E78.5 Hyperlipidemia, unspecified; G89.3 Neoplasm related pain (acute) (chronic); K72.90 Hepatic failure, unspecified without coma; R13.19 Other dysphagia; J44.9 Chronic obstructive pulmonary disease, unspecified; K21.9 Gastro-esophageal reflux disease without esophagitis; K59.00 Constipation, unspecified; Z96.641 Presence of right artificial hip joint; E77.8 Other disorders of glycoprotein metabolism; Z79.899 Other long term (current) drug therapy; Z80.8 Family history of malignant neoplasm of other organs or systems; Z82.49 Family history of ischemic heart disease and other diseases of the circulatory system; Z87.891 Personal history of nicotine dependence; Z93.1 Gastrostomy status
CPT/HCPCS: 36591; 74177; 76705; 80048; 80053; 80076; 81003; 82140; 82248; 82945; 83615 91; 83986 90; 84157; 85025; 85027; 85610; 85730; 87070; 87205; 88108; 89051; 93005; 93970; 96360; 96361; 99281; 99285; J0696; J1170; J1644; J2270; J2405; J2765; J7030; J7050

== ENCOUNTER 2016-10-14 20:37 | Inpatient (IN) | payer OTHER ==
[~2016-10-14 20:37] MED LIST changes: +NEXIUM20 M1 GT
[2016-10-14 23:36] VITALS: BP 107/71
[2016-10-15 07:52] VITALS: BP 107/80
[2016-10-15 16:45] VITALS: BP 11/72
== END 2016-10-15 18:06 | disposition hospice, home (50) | DRG 951 ==
LOC: 5EAST 20:37
PROC: 0W9G3ZZ Drainage of Peritoneal Cavity, Percutaneous Approach (ICD-10-PCS; principal; 2016-10-15)
DX: Z51.5 Encounter for palliative care (principal); R18.0 Malignant ascites; C15.9 Malignant neoplasm of esophagus, unspecified; C78.7 Secondary malignant neoplasm of liver and intrahepatic bile duct; K72.90 Hepatic failure, unspecified without coma; R13.19 Other dysphagia; Z93.1 Gastrostomy status; G89.3 Neoplasm related pain (acute) (chronic); Z66 Do not resuscitate
CPT/HCPCS: J1170